=== PATIENT | male | born 1995 | race Two or more races ===

== ENCOUNTER → 2024-09-27 | Outpatient (CLI) | payer OTHER, SELFPAY ==
[2024-09-27 10:59] LABS: Sed Rate (ESR) 14 mm/hr (0-15)
[2024-09-27 11:14] LABS: C-Reactive Protein 0.6 mg/dL (0.0-0.9)
[2024-09-27 14:42] LABS: Cocci Serology, IgM Positive (Negative)
[2024-09-27 14:43] LABS: Cocid Sro, CF/ID (UCD) NO CHG* See Sep Rpt
== END | disposition home or self-care (01) ==
LOC: COPL 10:12
PROVIDERS: PCP Family Medicine; Referring Provider Family Medicine; Visit Provider Family Medicine
DX: B38.0 Acute pulmonary coccidioidomycosis (principal)
CPT/HCPCS: 36415; 85652; 86140; 86635

== ENCOUNTER → 2024-10-10 | Outpatient (CLI) | payer OTHER, SELFPAY ==
--- NOTE | 2024-10-10 14:54 | XR_ITS ---
Examination: PA lateral chest 2 views TECHNIQUE: Upright PA lateral chest 2 views Exam date and time: October 10, 2024 1459 hours INDICATIONS: Diagnosis coccidiomycosis 2 months ago FINDINGS: Normal heart size No pneumonia or pulmonary edema The osseous structures are intact IMPRESSION: No active disease
== END | disposition home or self-care (01) ==
LOC: CDIM 14:50
PROVIDERS: Referring Provider Family Medicine; Visit Provider Family Medicine
DX: B38.0 Acute pulmonary coccidioidomycosis (principal)
CPT/HCPCS: 71046